=== PATIENT | female | born 1990 | race Caucasian/White ===

== ENCOUNTER 2017-09-09 23:29 | Inpatient (IN) | payer BC ==
[2017-09-10] MEDS ORDERED: RINGER'S SOLUTION,LACTATED 1,000 ML IV ONE (00:49)
[2017-09-10] MEDS ORDERED: RINGER'S SOLUTION,LACTATED 1,000 ML IV PRN (00:49)
[2017-09-10] MEDS ORDERED: OXYTOCIN/DEXTROSE 5%-WATER 30 UNITS/500 ML BAG IV ONE ×2 (00:49→02:06)
[2017-09-10] MEDS ORDERED: DEXTROSE 5%-LACTATED RINGERS 1,000 ML IV PRN (00:49)
[2017-09-10] MEDS ORDERED: LIDOCAINE HCL 50 ML VIAL PERI PRN (00:49)
[2017-09-10] MEDS ORDERED: NALOXONE HCL 1 MG/1 ML SYRG IV PRN (00:50)
[2017-09-10] MEDS ORDERED: ONDANSETRON HCL/PF 2 MG/ML VIAL IV PRN (00:50)
[2017-09-10] MEDS ORDERED: BUPIVACAINE HCL/0.9 % NACL/PF 250 ML EP PRN (00:50)
[2017-09-10] MEDS ORDERED: fentaNYL CITRATE/PF 50 MCG/ML AMPUL IT SCH (01:00)
[2017-09-10 01:01] LABS: Hematocrit 35.7 % (37.0-47.0); Hemoglobin 12.4 gm/dL (12.5-16.0); Mean Cell Volume 92.7 fl (78-100); Mean Corpuscular Hemoglobin 32.2 pg (27-31); Mean Corpuscular Hgb Conc 34.7 g/dl (32-36); Mean Platelet Volume 10.7 fl (6.0-9.5); Neutrophil # 8.5 K/mm3 (1.3-6.0); Neutrophil % 71.8 % (42-75.0); Platelet Count 143 K/mm3 (150-450); Red Blood Count 3.85 M/mm3 (4.2-5.4); Red Cell Distribution Width 12.1 % (11.5-14.0); White Blood Count 11.9 K/mm3 (4.0-10.5)
--- NOTE | 2017-09-10 01:51 | OR ---
Anesthesia Pre Procedure Eval Date of Service: 09/10/17 Pre Procedure Evaluation: Anesthesia Pre Procedure Evaluation Heart Rate: 65 Blood Pressure: 131/76 Temperature: 36.8 Respiratory Rate: 18 SaO2: 100 DATE: 09/10/2017 TIME: 1:30 AM INDICATIONS: Active labor, labor pain PAST MEDICAL HISTORY: Tempera patient in active labor rapidly progressing currently at 19 cm dilatation. History of GERD: No History of smoking: No History of sleep apnea: No EXAM: Heart regular; lungs clear ASSESSMENT OF MEDICAL STATUS: Appropriate candidate for labor analgesia PLANNED PROCEDURE: Intrathecal for labor analgesia Home Medications: HOME MEDICATIONS Vits96/Iron Fum/Folic [ S] 1 tab PO DAILY 04/19/16 [Last Taken 09/09/17 08:00] Ferrous Sulfate 325 mg PO DAILY #60 tablet 04/21/16 [Last Taken 09/09/17 08:00]
--- NOTE | 2017-09-10 01:54 | OR ---
Anesthesia Procedure Note - Anesthesia Procedure Note Date of Service: 09/10/17 Narrative: 09/10/17 01:51 ANESTHESIA PROCEDURE NOTE Date of Procedure: 09/10/2017 Time of procedure: 1:35 AM. Performed by: JESUS Gao CRNA, MSN Animal Laboratory Helper: Sherly Lynn RN. Preprocedure diagnosis: Active labor, labor pain. Post procedure diagnosis: Same. Procedure: Interthecal for labor analgesia L3 4. Indications: Labor pain. Findings: See below. Details of the procedure: The patient was placed on the side of the bed in sitting positionand prepped with DuraPrep then draped in a sterile fashion. Lidocaine 1% was infiltrated to the skin and subcutaneous tissues at the level of the L3 4 interspace. A 24-gauge Pencan needle was passed through an introducer in the CSF was contacted. After CSF returned fentanyl 50 mcg +5 mg of bupivacaine preservative-free was injected, stylette replaced and spinal needle removed. Band-Aid was then applied and the patient was placed supine. EBL: Minimal. Fluids: N/A. Specimen: N/A. Post procedure condition: The patient tolerated the procedure well with [] relief. No complications were noted. Thank you for this consultation. Yo Pretty CRNA, ARNP, MSN
[2017-09-10] MEDS ORDERED: HYDROCORTISONE 30 APPL TUBE TP PRN (02:06)
[2017-09-10] MEDS ORDERED: BENZOCAINE/MENTHOL 81 SPRAY CAN TP PRN (02:06)
[2017-09-10] MEDS ORDERED: GLYCERIN/WITCH HAZEL LEAF 40 APPL BOX TP PRN (02:06)
[2017-09-10] MEDS ORDERED: oxyCODONE HCL/ACETAMINOPHEN 1 TAB TABLET PO PRN (02:06)
[2017-09-10] MEDS ORDERED: SENNOSIDES 8.6 MG TABLET PO PRN (02:06)
[2017-09-10] MEDS ORDERED: BISACODYL 10 MG SUPP.RECT RC PRN (02:06)
--- NOTE | 2017-09-10 02:10 | OR ---
Operative Report - Dictated Report Narrative: Spontaneous Vaginal Delivery Viable male with APGARS of 9 at 1 minute and 9 at 5 minutes. He delivered at 0155. Presentation was CHRISTIAN. She delivered over 2 contractions. No nuchal cord was noted. The right anterior shoulder delivered with gentle downward traction followed by the posterior shoulder and the remainder of the baby. The baby was placed on maternal abdomen and spontaneous cry was noted. The cord was clamped and cut after approximately 90 seconds. Weight: 7 pounds 10.0 ounces or 3460 g Placenta was delivered spontaneously and intact. No perineal or vaginal lacerations were noted. Estimated blood loss: 50 ml Mother and baby tolerated delivery well. History for Definition: * The number of deliveries resulting in a live the patient experienced prior to current hospitalization * The previous delivery of live twins or any live multiple gestation is considered one live event. *If primagravida or nulliparous is documented select zero for the number of previous live births. Live Events: 1
[2017-09-10] MEDS: IBUPROFEN 800 MG TABLET PO PRN ×2 (05:26→14:26)
[2017-09-10] MEDS: DOCUSATE SODIUM 100 MG CAPSULE PO SCH ×2 (09:48→21:31)
[2017-09-10] MEDS: oxyCODONE HCL/ACETAMINOPHEN 1 TAB TABLET PO PRN ×2 (14:26→18:36)
[2017-09-11] MEDS: IBUPROFEN 800 MG TABLET PO PRN (07:18)
--- NOTE | 2017-09-11 09:33 | PN ---
Progess Note - Interim Narrative: 09/11/17 09:29 progress note Subjective: The patient is doing well. She is ambulating, voiding, tolerating by mouth. She has minimal pain and moderate lochia. c/o ARIAS 3-410 that started after she sat up. worse with being up. Objective: General: No acute distress Abdomen: Soft, nontender, fundus is firm just below the umbilicus Extremities: minimal edema, nontender to palpation Assessment and plan: day 1 Feeding: Bottle Pain: Controlled with by mouth medication ARIAS: cont. to monitor, if worsens then discuss with anesthesia Routine care.
[2017-09-11] MEDS: DOCUSATE SODIUM 100 MG CAPSULE PO SCH ×2 (10:06→20:56)
[2017-09-11] MEDS: oxyCODONE HCL/ACETAMINOPHEN 1 TAB TABLET PO PRN (13:27)
[2017-09-12] MEDS: IBUPROFEN 800 MG TABLET PO PRN ×2 (01:43→09:10)
[2017-09-12 08:01] VITALS: BP 114/62
[2017-09-12] MEDS: DOCUSATE SODIUM 100 MG CAPSULE PO SCH (08:24)
--- NOTE | 2017-09-12 11:27 | PN ---
Subjective - Date and Time Seen Date: 09/12/17 Subjective Narrative: care day 2, s/p doing well. no complaints. bottle feeding. light lochia only. Objective - Vitals Vitals: Last Vital Signs Temp 36.7 C 09/12/17 07:47 Pulse 86 09/12/17 07:47 Resp 20 09/12/17 07:47 BP 114/62 09/12/17 07:47 Pulse Ox 99 09/12/17 07:47 - Exam Constitutional: Present: Alert, Oriented x3, Cooperative Respiratory: Present: no respiratory distress Cardiovascular/Chest: Present: normal peripheral pulses Abdomen: Present: soft, nontender, nondistended, other - fundus firm and non- tender below umbilicus Extremity: Present: normal range of motion, no pedal edema, no calf tenderness Skin Exam: Present: normal color, warm/dry, no cyanosis Appearance: Present: appropriate appearance Eye contact: Present: cooperative, good eye contact, normal speech Assessment/Plan Plan Narrative: A: PPD#2, s/p stable and well. Plan: will discharge home today. Naz Nuno MD
== END 2017-09-12 11:40 | disposition home or self-care (01) | DRG 766 ==
LOC: OBCLINIC 23:29 → OB 09-10 00:42
PROVIDERS: ADMIT Obstetrics & Gynecology Gynecologic Oncology; ATTEND Obstetrics & Gynecology Gynecologic Oncology
PROC: 10D00Z1 Extraction of Products of Conception, Low, Open Approach (ICD-10-PCS; principal; 2017-09-10)
PROC: 4A1HXCZ Monitoring of Products of Conception, Cardiac Rate, External Approach (ICD-10-PCS; 2017-09-10)
PROC: 00HU33Z Insertion of Infusion Device into Spinal Canal, Percutaneous Approach (ICD-10-PCS; 2017-09-10)
DX: O99.12 Other diseases of the blood and blood-forming organs and certain disorders involving the immune mechanism complicating childbirth (principal); D69.6 Thrombocytopenia, unspecified; O28.8 Other abnormal findings on antenatal screening of mother; O99.02 Anemia complicating childbirth; D64.9 Anemia, unspecified; Z3A.38 38 weeks gestation of pregnancy; Z37.0 Single live birth

== ENCOUNTER 2017-09-15 09:11 | Day surgery (SDC) | payer BC ==
--- NOTE | 2017-09-15 09:33 | OR ---
Anesthesia Pre Procedure Eval Date of Service: 09/15/17 Pre Procedure Evaluation: Last Vital Signs Temp 36.7 C 09/15/17 09:25 Pulse 77 09/15/17 09:25 Resp 16 09/15/17 09:25 BP 101/61 09/15/17 09:25 Pulse Ox 98 09/15/17 09:25 Anesthesia Pre Procedure Evaluation DATE: 09/15/2017 TIME: 9:30 AM INDICATIONS: Post dural puncture headache after intrathecal placed 09/13/2017 PAST MEDICAL HISTORY: Ms. Brar recently delivered a healthy baby boy on Tuesday morning early for which she received an intrathecal with a #24 Pencan needle for labor analgesia. Her progress of labor was rapid as to discount the need for a full epidural at that point. She did experience an onset of postural headaches prior to her discharge. I spoke with Ms. Brar at that time and considering her symptoms and home support she was best served to treat her apparent postdural puncture headache conservatively. Since returning to home her symptoms increased in nature over the next couple days and she has decided to go ahead with a blood patch at this point. History of GERD: No History of smoking: No History of sleep apnea: No EXAM: Heart S1-S2 regular; lungs clear bilaterally ASSESSMENT OF MEDICAL STATUS: Failing conservative treatment and epidural blood patch is appropriate at this point. PLANNED PROCEDURE: Epidural blood patch Home Medications: HOME MEDICATIONS Vits96/Iron Fum/Folic [ S] 1 tab PO DAILY 04/19/16 [Last Taken 09/09/17 08:00] Ferrous Sulfate 325 mg PO DAILY #60 tablet 04/21/16 [Last Taken 09/09/17 08:00] Ibuprofen [Motrin] 800 mg PO Q6H PRN tablet 09/11/17 [Last Taken Unknown]
--- NOTE | 2017-09-15 10:20 | OR ---
Anesthesia Procedure Note - Anesthesia Procedure Note Date of Service: 09/15/17 Narrative: Vital Signs - Last Taken Temp 36.7 C 09/15/17 09:25 Pulse 77 09/15/17 09:25 Resp 16 09/15/17 09:25 BP 101/61 09/15/17 09:25 Pulse Ox 98 09/15/17 09:25 09/15/17 10:17 ANESTHESIA PROCEDURE NOTE Date of Procedure: 09/15/2017 Time of procedure: 10 AM. Performed by: JESUS Gao CRNA, MSN Marketing Systems Analyst: Ani Bennett RN. Preprocedure diagnosis: Post dura puncture headache. Post procedure diagnosis: Same. Procedure:Epidural blood patch L4 5. Indications: Postdural puncture headache following intrathecal. Findings: See below. Details of the procedure: The patient was brought to OR #4 and placed on the side of the bed in sitting positionand prepped with DuraPrep then draped in a sterile fashion. A #20 IV was started in the right antecubital after a DuraPrep was applied to the site. Lidocaine 1% was infiltrated to the skin prior to the skin under sterile conditions. The subcutaneous tissues at the level of the L4 5 interspace was then localized under sterile conditions. An 20 -gauge Touhy needle was used to approach the epidural space with loss of resistance technique. Once loss of resistance was achieved, 20 mL of blood was drawn from the recently initiated IV and 20 milliliters of blood was injected into the epidural space. After the injection stylette was replaced and the epidural needle was removed. A Band-Aid was then applied and the patient experienced a relief of symptoms. EBL: 20 mL withdrawn. Fluids: N/A. Specimen: N/A. Post procedure condition: The patient tolerated the procedure well with good relief, from headache pain of 3/10, to 0/10. No complications were noted. Thank you for this consultation. Yo Pretty CRNA, JESUS, MSN
[2017-09-15 11:19] VITALS: BP 129/85
== END 2017-09-15 09:12 | disposition home or self-care (01) ==
LOC: AMB 09:11
PROVIDERS: ATTEND Obstetrics & Gynecology Gynecologic Oncology
PROC: 3E0S3GC Introduction of Other Therapeutic Substance into Epidural Space, Percutaneous Approach (ICD-10-PCS; principal; 2017-09-15 11:15)
DX: G97.1 Other reaction to spinal and lumbar puncture (principal)